=== PATIENT | female | born 1965 | race Caucasian/White ===

== ENCOUNTER 2016-07-10 09:41 | Emergency (ER) | payer OTHER ==
[~2016-07-10] VITALS: Ht 157.5 cm; Wt 59.1 kg
[~2016-07-10 09:41] MED LIST: ASPIRIN 81M81 MG/TA2 PO; AZO MENOPAUSE1 X PO; CEPHALEXIN500 M1 PO; FLEXERIL 1010 MG/TAB PO; IBU800 M1 PO; NAPROSYN500 MG PO; NEURONTIN300 MG/CAP PO; NORCO 325 MG-51 TAB PO; PERCOCET 325 MG1 TA2 PO; PREMARIN VAG42.5 GM VG; PRILOTC PO; VENTOLIN0.09 MG IH; WELLBUTRIN XL150 MG PO; ZITHROMAX Z PA250 MG PO
[2016-07-10 09:45] VITALS: TEMP 98.1
[2016-07-10 10:38] LABS: BASO # 0.1 (0.0-0.2); BASO % 0.8 % (0.0-2.0); EOS # 0.3 (0.0-0.7); EOS % 3.3 % (0-4.0); GRAN # 5.6 (1.4-6.5); GRAN % 53.5 % (42.2-75.2); HEMATOCRIT 41.5 % (37.0-47.0); HEMOGLOBIN 13.7 g/dl (12.5-16.0); LYMPH # 3.5 (1.2-3.4); LYMPH % 33.7 % (20.0-51.0); MEAN CELL VOLUME 93 fl (80.0-100.0); MEAN CORPUSCULAR HEMOGLOBIN 31 pg (27.0-31.0); MEAN CORPUSCULAR HGB CONC 33 g/dl (33.0-37.0); MONO # 0.9 (0.1-0.6); MONO % 8.2 % (1.7-9.3); PLATELET COUNT 262 K/mm3 (130-400); RED BLOOD COUNT 4.48 M/mm3 (4.10-5.30); REDCELL DISTRIBUTION WIDTH-CV 13.1 % (11.5-14.5); WHITE BLOOD COUNT 10.5 K/mm3 (4.8-10.8)
[2016-07-10] MEDS ORDERED: NEURONTIN100 MG/CAP PO (10:44)
[2016-07-10] MEDS ORDERED: NEXIUM 20MG20 MG PO (10:44)
[2016-07-10] MEDS ORDERED: SONATA 10MG10 MG PO (10:44)
[2016-07-10] MEDS ORDERED: MAXALT5 MG PO (10:44)
[2016-07-10] MEDS ORDERED: ZESTRIL 10MG10 MG PO (10:44)
[2016-07-10] MEDS ORDERED: CELEXA 20MG20 MG/TAB PO (10:45)
[2016-07-10] MEDS ORDERED: NITROSTAT0.4 MG/TAB SL (10:45)
[2016-07-10 10:53] LABS: ADJUSTED CALCIUM 9.5 mg/dL (8.4-10.2); ALANINE AMINOTRANSFERASE 41 U/L (9-52); ALBUMIN 4.4 gm/dL (3.5-5.0); ALKALINE PHOSPHATASE 97 U/L (50-136); ANION GAP 12 mmol/L (7-16); BILIRUBIN,TOTAL 0.6 mg/dL (0.0-1.0); BLOOD UREA NITROGEN 12 mg/dL (7-17); CALCIUM 9.8 mg/dL (8.4-10.2); CARBON DIOXIDE 27 mmol/L (22-30); CHLORIDE 101 mmol/L (98-107); CREATININE, serum 0.92 mg/dL (0.52-1.25); GLUCOSE 62 mg/dL (74-106); POTASSIUM 3.9 mmol/L (3.4-5.0); SODIUM 140 mmol/L (137-145); TOTAL PROTEIN 7.6 gm/dL (6.4-8.2)
[2016-07-10 11:09] LABS: ERYTHROCYTE SEDIMENTATION RATE 4 mm/hr (0-30)
[2016-07-10 11:15] LABS: C-REACTIVE PROTEIN < 0.5 mg/dL (0.0-0.9)
[2016-07-10 12:17] VITALS: BP 119/55; PULSE 60
== END 2016-07-10 12:16 | disposition home or self-care (01) ==
LOC: COL.ER 09:41
PROVIDERS: Emergency Medicine
DX: R51 Headache (principal); R11.0 Nausea; H53.8 Other visual disturbances
CPT/HCPCS: J2405; J7030

== ENCOUNTER → 2018-11-18 | Outpatient (CLI) | payer BC ==
[~2018-11-18] MED LIST changes: +CELEXA 20MG20 MG/TAB PO; +MAXALT5 MG PO; +NEURONTIN100 MG/CAP PO; +NEXIUM 20MG20 MG PO; +NITROSTAT0.4 MG/TAB SL; +SONATA 10MG10 MG PO; +ZESTRIL 10MG10 MG PO
== END ==
LOC: COL.RAD 09:59
DX: I65.23 Occlusion and stenosis of bilateral carotid arteries (principal)
CPT/HCPCS: Q9967

== ENCOUNTER 2019-02-16 20:28 | Emergency (ER) | payer BC ==
[~2019-02-16] VITALS: Ht 157.5 cm; Wt 69.1 kg
[2019-02-16 20:38] VITALS: TEMP 98.6
[2019-02-16] MEDS ORDERED: LIPITOR20 MG PO (21:18)
[2019-02-16] MEDS ORDERED: TOPROL XL 50MG50 MG PO (21:19)
[2019-02-16] MEDS ORDERED: PRILOTC (21:20)
[2019-02-16] MEDS ORDERED: LEXAPRO20 MG PO (21:20)
[2019-02-16] MEDS ORDERED: NORCO 325 MG-51 TAB PO (22:01)
[2019-02-16 22:15] VITALS: BP 139/62; PULSE 66
== END 2019-02-16 22:25 | disposition home or self-care (01) ==
LOC: COL.ER 20:28
DX: M25.511 Pain in right shoulder (principal); K21.9 Gastro-esophageal reflux disease without esophagitis; F32.9 Major depressive disorder, single episode, unspecified; I10 Essential (primary) hypertension; F17.210 Nicotine dependence, cigarettes, uncomplicated
CPT/HCPCS: J1885; J3010

== ENCOUNTER → 2020-03-01 | Outpatient (CLI) | payer BC ==
[~2020-03-01] MED LIST changes: +ANORO IH; +COZAAR100 MG PO; +CRUTCHES MC; +HCTZ 25MG TAB25 MG PO; +LEXAPRO20 MG PO; +LIPITOR20 MG PO; +NORVASC 5MG5 MG/TAB PO; +PLAVIX 75MG TAB75 MG PO; +PRIL40 PO; +PRILOTC; +PRINIVIL10 MG PO; +TOPROL XL 50MG50 MG PO; +WELLBUTRIN XL300 M1 PO
== END ==
LOC: MC.RAD 07:45
DX: Z12.31 Encounter for screening mammogram for malignant neoplasm of breast (principal)